=== PATIENT | male | born 1965 | race Caucasian/White ===

== ENCOUNTER 2023-02-02 00:49 | Emergency (ER) | payer BC, OTHER ==
[2023-02-02] MEDS ORDERED: Ibuprofen 600 MG Tab PO ONE (01:05)
[2023-02-02] MEDS ORDERED: Amoxicillin/Clavulanate K 875-125 MG Tab PO ONE (01:05)
[2023-02-02] MEDS ORDERED: Acetaminophen/oxyCODONE 325-5 MG Tab PO ONE (01:05)
== END 2023-02-02 01:24 | disposition home or self-care (01) ==
LOC: MW.ED 00:49
DX: K04.7 Periapical abscess without sinus (principal)
CPT/HCPCS: 99283; A9270